=== PATIENT | female | born 1990 | race African-American/Black ===

== ENCOUNTER 2021-01-29 15:48 | Outpatient (CLI) | payer OTHER, SELFPAY | END 2021-01-29 15:49 | disposition home or self-care (01) | PROVIDERS: Visit Provider Student in an Organized Health Care Education/Training Program | DX: Z34.90 Encounter for supervision of normal pregnancy, unspecified, unspecified trimester (principal) | CPT/HCPCS: 36415; 86850; 86900; 86901 ==

== ENCOUNTER 2021-02-26 15:34 | Outpatient (CLI) | payer OTHER, SELFPAY ==
[2021-02-26 16:16] LABS: Basophils Percent Auto 0.6 % (0.2-1.2); Eosinophils Absolute Auto 0.2 K/mm3 (0-0.3); Eosinophils Percent Auto 2.5 % (0-4.4); Hematocrit 37.8 % (37.0-47.0); Hemoglobin 13.1 g/dL (12.0-15.0); Immature Granulocyte Absolute 0.02 K/mm3 (0.00-0.031); Immature Granulocyte Percent A 0.3 % (0-0.5); Lymphocytes Absolute Auto 1.87 K/mm3 (0.9-3.2); Lymphocytes Percent Auto 25.9 % (18.3-44.2); Mean Corpuscular HGB Conc 34.7 g/dl (32-36); Mean Corpuscular Hemoglobin 32.8 pg (26-34); Mean Corpuscular Volume 94.5 fl (80-100); Mean Platelet Volume 8.7 fl (7.4-10.4); Monocytes Absolute Auto 0.5 K/mm3 (0.1-0.6); Monocytes Percent Auto 6.9 % (2.6-8.5); Neutrophils Absolute Auto 4.6 K/mm3 (1.3-6.7); Neutrophils Percent Auto 63.8 % (45.5-73.1); Platelet Count Result 280 k/mm3 (150-375); Red Cell Distribution Width 12.3 % (11.5-14.5); White Blood Count 7.2 K/mm3 (4.5-10.0)
[2021-02-26 16:20] LABS: Add Urine Microscopic? YES; Appearance Urine Clear (Clear); Bilirubin Urine Negative (Negative); Blood Urine Negative (Negative); Color Urine Yellow (Yellow); Glucose Urine UA Negative (Negative); Ketones Urine Negative (Negative); Leukocyte Esterase Ur Trace LEU/UL (NEGATIVE); Mucus Urine Rare /lpf; Nitrate Urine Negative (Negative); Protein Urine Negative (Negative); RBC Urine 0-2 /hpf (0-2); Squamous Epithelial Cell Urine Occasional /hpf (Few); Urobilinogen Urine Negative mg/dL (<2.0); WBC Urine 0-3 /hpf (0-3)
[2021-02-26 17:13] LABS: Thyroid Stimulating Hormone 0.099 uIU/mL (0.465-4.680)
[2021-02-26 17:17] LABS: Vitamin D 25 Hydroxy 41.5 ng/mL
[2021-02-26 17:23] LABS: HIV 1/2 Ab P24 Ag Result Negative (Negative)
[2021-02-26 17:34] LABS: Hepatitis B Surface Antigen Negative (Negative)
[2021-02-26 17:48] LABS: Hepatitis C Virus Antibody Negative (Negative)
[2021-02-26 18:01] LABS: Rubella IgG Antibody > 120.0 IU/ML
[2021-03-01 07:57] LABS: Rapid Plasma Reagin Non-Reactive (NonReactive)
== END 2021-02-26 15:35 | disposition home or self-care (01) ==
PROVIDERS: Visit Provider Student in an Organized Health Care Education/Training Program
DX: Z34.90 Encounter for supervision of normal pregnancy, unspecified, unspecified trimester (principal); Z3A.00 Weeks of gestation of pregnancy not specified
CPT/HCPCS: 36415; 81001; 82306; 84443; 85025; 86592; 86703; 86762; 86787; 86803; 87077; 87086; 87088; 87186; 87340; G0432

== ENCOUNTER 2021-05-25 11:06 | Outpatient (CLI) | payer OTHER, SELFPAY ==
[2021-05-25 13:15] LABS: Basophils Percent Auto 0.3 % (0.2-1.2); Eosinophils Absolute Auto 0.1 K/mm3 (0-0.3); Eosinophils Percent Auto 1.5 % (0-4.4); Hematocrit 33.2 % (37.0-47.0); Hemoglobin 11.5 g/dL (12.0-15.0); Immature Granulocyte Absolute 0.02 K/mm3 (0.00-0.031); Immature Granulocyte Percent A 0.3 % (0-0.5); Lymphocytes Absolute Auto 1.55 K/mm3 (0.9-3.2); Lymphocytes Percent Auto 23.6 % (18.3-44.2); Mean Corpuscular HGB Conc 34.6 g/dl (32-36); Mean Corpuscular Hemoglobin 34.3 pg (26-34); Mean Corpuscular Volume 99.1 fl (80-100); Mean Platelet Volume 9.4 fl (7.4-10.4); Monocytes Absolute Auto 0.5 K/mm3 (0.1-0.6); Monocytes Percent Auto 7.3 % (2.6-8.5); Neutrophils Absolute Auto 4.4 K/mm3 (1.3-6.7); Platelet Count Result 218 k/mm3 (150-375); Red Blood Count 3.35 M/mm3 (4.2-5.4); Red Cell Distribution Width 13.4 % (11.5-14.5); White Blood Count 6.6 K/mm3 (4.5-10.0)
[2021-05-25 14:00] LABS: Glucose 1 Hour PP 50gm Dose 92 mg/dL
== END 2021-05-25 11:07 | disposition home or self-care (01) ==
LOC: ANHLAB 11:08
PROVIDERS: PCP Internal Medicine; Visit Provider Student in an Organized Health Care Education/Training Program
DX: Z34.90 Encounter for supervision of normal pregnancy, unspecified, unspecified trimester (principal)
CPT/HCPCS: 36415; 82947; 85025

== ENCOUNTER 2021-07-08 14:57 | Outpatient (CLI) | payer OTHER, SELFPAY ==
[2021-07-08 15:55] LABS: Basophils Percent Auto 0.4 % (0.2-1.2); Eosinophils Absolute Auto 0.2 K/mm3 (0-0.3); Eosinophils Percent Auto 2.1 % (0-4.4); Hematocrit 32.9 % (37.0-47.0); Hemoglobin 11.6 g/dL (12.0-15.0); Immature Granulocyte Absolute 0.05 K/mm3 (0.00-0.031); Immature Granulocyte Percent A 0.7 % (0-0.5); Lymphocytes Absolute Auto 1.69 K/mm3 (0.9-3.2); Lymphocytes Percent Auto 23.8 % (18.3-44.2); Mean Corpuscular HGB Conc 35.3 g/dl (32-36); Mean Corpuscular Hemoglobin 34.2 pg (26-34); Mean Corpuscular Volume 97.1 fl (80-100); Mean Platelet Volume 9.8 fl (7.4-10.4); Monocytes Absolute Auto 0.5 K/mm3 (0.1-0.6); Monocytes Percent Auto 7.5 % (2.6-8.5); Neutrophils Absolute Auto 4.6 K/mm3 (1.3-6.7); Neutrophils Percent Auto 65.5 % (45.5-73.1); Platelet Count Result 191 k/mm3 (150-375); Red Blood Count 3.39 M/mm3 (4.2-5.4); Red Cell Distribution Width 12.4 % (11.5-14.5); White Blood Count 7.1 K/mm3 (4.5-10.0)
[2021-07-08 18:12] LABS: HIV 1/2 Ab P24 Ag Result Negative (Negative)
[2021-07-09 06:26] LABS: Rapid Plasma Reagin Non-Reactive (NonReactive)
== END 2021-07-08 14:58 | disposition home or self-care (01) ==
LOC: ANHLAB 14:59
PROVIDERS: PCP Internal Medicine; Visit Provider Student in an Organized Health Care Education/Training Program
DX: Z34.90 Encounter for supervision of normal pregnancy, unspecified, unspecified trimester (principal); Z3A.00 Weeks of gestation of pregnancy not specified
CPT/HCPCS: 36415; 85025; 86592; 86703; G0432

== ENCOUNTER 2021-07-20 09:02 | Outpatient (CLI) | payer OTHER, SELFPAY ==
[2021-07-20 09:42] LABS: Basophils Percent Auto 0.4 % (0.2-1.2); Eosinophils Absolute Auto 0.2 K/mm3 (0-0.3); Eosinophils Percent Auto 2.1 % (0-4.4); Hematocrit 29.9 % (37.0-47.0); Hemoglobin 10.6 g/dL (12.0-15.0); Immature Granulocyte Absolute 0.05 K/mm3 (0.00-0.031); Immature Granulocyte Percent A 0.7 % (0-0.5); Lymphocytes Absolute Auto 2.06 K/mm3 (0.9-3.2); Lymphocytes Percent Auto 26.8 % (18.3-44.2); Mean Corpuscular HGB Conc 35.5 g/dl (32-36); Mean Corpuscular Hemoglobin 33.9 pg (26-34); Mean Corpuscular Volume 95.5 fl (80-100); Monocytes Absolute Auto 0.6 K/mm3 (0.1-0.6); Monocytes Percent Auto 8.2 % (2.6-8.5); Neutrophils Absolute Auto 4.8 K/mm3 (1.3-6.7); Neutrophils Percent Auto 61.8 % (45.5-73.1); Platelet Count Result 163 k/mm3 (150-375); Red Blood Count 3.13 M/mm3 (4.2-5.4); Red Cell Distribution Width 12.3 % (11.5-14.5); White Blood Count 7.7 K/mm3 (4.5-10.0)
[2021-07-20 10:35] LABS: HIV 1/2 Ab P24 Ag Result Negative (Negative)
[2021-07-21 10:37] LABS: Rapid Plasma Reagin Non-Reactive (NonReactive)
== END 2021-07-20 09:03 | disposition home or self-care (01) ==
LOC: ANHLAB 09:04
PROVIDERS: PCP Internal Medicine; Visit Provider Student in an Organized Health Care Education/Training Program
DX: Z34.03 Encounter for supervision of normal first pregnancy, third trimester (principal); Z3A.00 Weeks of gestation of pregnancy not specified
CPT/HCPCS: 36415; 85025; 86592; 86703; G0432

== ENCOUNTER 2021-09-02 17:05 | Inpatient (IN) | payer OTHER, SELFPAY ==
[2021-09-02] VITALS (19 sets, daily range): BP systolic 83–124; BP diastolic 29–75; PULSE 73–88
[2021-09-02] MEDS: AMPICILLIN 2 GM/NS 100 ML 2 GM/100 ML BAG IVPB (18:10)
[2021-09-02] MEDS: LACTATED RINGERS 1,000 ML 125 ML IV CONT (18:10)
[2021-09-02 18:12] LABS: Basophils Percent Auto 0.3 % (0.2-1.2); Eosinophils Absolute Auto 0.1 K/mm3 (0-0.3); Hematocrit 33.1 % (37.0-47.0); Hemoglobin 11.7 g/dL (12.0-15.0); Immature Granulocyte Absolute 0.05 K/mm3 (0.00-0.031); Immature Granulocyte Percent A 0.7 % (0-0.5); Lymphocytes Absolute Auto 1.76 K/mm3 (0.9-3.2); Mean Corpuscular HGB Conc 35.3 g/dl (32-36); Mean Corpuscular Hemoglobin 34.7 pg (26-34); Mean Corpuscular Volume 98.2 fl (80-100); Mean Platelet Volume 9.6 fl (7.4-10.4); Monocytes Absolute Auto 0.6 K/mm3 (0.1-0.6); Monocytes Percent Auto 8.1 % (2.6-8.5); Neutrophils Absolute Auto 5.1 K/mm3 (1.3-6.7); Neutrophils Percent Auto 66.9 % (45.5-73.1); Platelet Count Result 170 k/mm3 (150-375); Red Blood Count 3.37 M/mm3 (4.2-5.4); White Blood Count 7.7 K/mm3 (4.5-10.0)
--- NOTE | 2021-09-02 19:23 | LDADM ---
This patient, Cassandra Ramirez, was admitted to Labor/Delivery/Recovery 103 on 09/02/21 at 17:05. Plans for labor, pain management and were discussed with patient. Patient/family oriented to hospital policies and general routines including ID bracelet, bed and alarms, visiting hours, pain management, procedures, bathroom and other care routines, personal items, smoking policy, room service/diet and guest tray routines, infant security routines, and visiting hours. Patient/Family are encouraged to report perceived risks to care and to ask questions if they do not understand what they are told or what they should do. See OBIX for further documentation.
[2021-09-02] MEDS: AMPICILLIN 1 GM/NS 50 ML 1 GM/50 ML BAG IVPB (22:27)
[2021-09-02] MEDS: OXYTOCIN 30 UNITS/NS 500 ML 30 UNITS/500 ML BAG IV CONT (23:05)
[2021-09-03] VITALS (189 sets, daily range): BP systolic 81–198; BP diastolic 40–182; PULSE 59–120; RESP 16–22; TEMP 36.3–37.2; O2SAT 86–100; BMI 31.4
--- NOTE | 2021-09-03 00:25 | WPDANESEPP ---
Anes - Eval Pre Procedure Procedure: labor epidural Date/Time: 09/03/21 00:25 Surgeon: vani Pre Op Diagnosis: spontaneous rupture of membranes Patient Data Age: 30 Gender: F Height: Weight: Last Vital Signs Pulse 88 09/02/21 23:55 BP 114/66 09/02/21 23:55 Allergies Allergy/AdvReac Type Severity Reaction Status Date / Time No Known Allergies Allergy Verified 08/31/21 11:00 Home Medications Medication Instructions Recorded Confirmed Type prenat.vits,anna,[id number]-azor-[id number] 1 tablet PO DAILY 01/20/21 09/02/21 History ferrous sulfate 325 mg (65 mg 325 mg PO DAILY #90 tablet 07/20/21 09/02/21 Rx iron) tablet Laboratory Tests 09/02/21 09/02/21 09/02/21 17:54 17:54 17:54 WBC 7.7 K/mm3 K/mm3 (4.5-10.0) RBC 3.37 M/mm3 L M/mm3 (4.2-5.4) Hgb 11.7 g/dL L g/dL (12.0-15.0) Hct 33.1 % L % (37.0-47.0) MCV 98.2 fl fl (80-100) MCH 34.7 pg H pg (26-34) MCHC 35.3 g/dl g/dl (32-36) RDW 13.0 % % (11.5-14.5) Plt Count 170 k/mm3 k/mm3 (150-375) MPV 9.6 fl fl (7.4-10.4) Immature Gran % (Auto) 0.7 % H % (0-0.5) Neut % (Auto) 66.9 % % (45.5-73.1) Lymph % (Auto) 23.0 % % (18.3-44.2) [place] % (Auto) 8.1 % % (2.6-8.5) Eos % (Auto) 1.0 % % (0-4.4) Baso % (Auto) 0.3 % % (0.2-1.2) Lymph # (Auto) 1.76 K/mm3 K/mm3 (0.9-3.2) [place] # (Auto) 0.6 K/mm3 K/mm3 (0.1-0.6) Eos # (Auto) 0.1 K/mm3 K/mm3 (0-0.3) Baso # (Auto) 0.0 K/mm3 K/mm3 (0.0-0.1) Abs Immat Gran (auto) 0.05 K/mm3 H K/mm3 (0.00-0.031) Absolute Neuts (auto) 5.1 K/mm3 K/mm3 (1.3-6.7) Absolute Nucleated RBC 0.0 K/mm3 K/mm3 (0.0-0.012) Nucleated RBC % 0.0 % % (0.0-0.2) RPR Pending Blood Type O Positive Antibody Screen Negative Patient hx anesthesia problems: none Family hx anesthesia problems: none Results Review: All pre-operative results and documents have been reviewed as part of the pre-operative evaluation. FORMERLY [facility], [facility] Past Medical History Medical History History of chlamydia History of gonorrhea Surgical History Surgical History History of plastic surgery [employer] Butt Lift Family History Family History Other No pertinent family history Social History Social History Smoking status: Current every day smoker Second hand tobacco smoke exposure: No Alcohol intake: former Substance use: never Spiritual care concerns: No Exam Day of Procedure 09/03/21 00:25
[2021-09-03] MEDS: LACTATED RINGERS 1,000 ML 125 ML IV CONT ×2 (01:25→08:09)
[2021-09-03] MEDS: AMPICILLIN 1 GM/NS 50 ML 1 GM/50 ML BAG IVPB ×3 (02:20→11:14)
[2021-09-03 06:28] LABS: Rapid Plasma Reagin Non-Reactive (NonReactive)
[2021-09-03] MEDS: OXYTOCIN 30 UNITS/NS 500 ML 30 UNITS/500 ML BAG 125 UNITS IV CONT (12:15)
--- NOTE | 2021-09-03 12:40 | PM.IMHP ---
H&P: HPI History of Present Illness Date/Time: 09/03/21 12:40 The patient is a 30-year-old LMP 12/03/2020 who presented to Labor and delivery on the evening of 09/02/2021 at 39 weeks gestation. SUJATA 09/09/2021. Patient is dated by LMP consistent with ultrasound on 01/29/2021 at 8 weeks gestation. Patient presented to labor and delivery with complaints of leakage of fluid. Patient reported a large gush of clear fluid at approximately 3:30 p.m. She reports subsequent onset of contractions. Upon arrival to labor and delivery a few hours later, patient was noted to be grossly ruptured in early labor. Patient denied any vaginal bleeding and reported good movement. Chief Complaint: Early labor Spontaneous rupture of membranes Review of Systems Review of Systems: All systems reviewed & are unremarkable except as noted in HPI and below Constitutional: Constitutional: Reports as per HPI, Reports no additional constitutional complaints, Denies chills, Denies fever(s), Denies headache(s) and Denies night sweats Eyes: Eyes: Reports as per HPI and Reports no additional eye complaints ENT: Reports system reviewed and no additional complaints, except as documented, Reports as per HPI, Reports Normal hearing present and Denies headache(s) Cardiovascular: Cardiovascular: Reports as per HPI, Reports no additional cardiovascular complaints, Denies chest pain and Denies dyspnea Respiratory: Respiratory: Reports as per HPI, Reports no additional respiratory complaints, Denies cough and Denies dyspnea Gastrointestinal: Gastrointestinal: Reports as per HPI, Reports no additional gastrointestinal complaints, Denies abdominal pain, Denies change in bowel habits, Denies change in stool character, Denies nausea and Denies vomiting Genitourinary: Genitourinary: Reports no additional female genitourinary complaints, Reports as per HPI, Denies abnormal vaginal bleeding, Denies genital lesions, Denies hot flashes, Denies dyspareunia, Denies pelvic pain, Denies sexual dysfunction, Denies urinary incontinence, Denies vaginal discharge, Denies vaginal dryness and Denies vaginal odor Musculoskeletal: Musculoskeletal: Reports no additional musculoskeletal complaints and Reports as per HPI Integumentary/Breasts: Skin/Breast: Reports system reviewed and no additional complaints, except as docu, Reports as per HPI, Denies breast pain and Denies nipple discharge Neurologic: Reports system reviewed and no additional complaints, except as documented, Reports as per HPI, Reports Normal hearing present and Denies headache(s) Psychiatric: Psychiatric: Reports no additional psychiatric complaints, Reports as per HPI, Denies anxiety and Denies depression Endocrine: Endocrine: Reports no additional endocrine complaints and Reports as per HPI Hematologic/Lymphatic: Hematologic/Lymphatic: Reports no additional hematologic/lymphatic complaints and Reports as per HPI Allergic/Immunologic: Allergic/Immunologic: Reports no additional allergic/immunologic complaints and Reports as per HPI PMFSH Past Medical History Medical History History of chlamydia History of gonorrhea Surgical History Surgical History History of plastic surgery [employer] Butt Lift Family History Family History Other No pertinent family history Social History Social History Smoking status: Current every day smoker Second hand tobacco smoke exposure: No Alcohol intake: former Substance use: never Spiritual care concerns: No Meds Home Medications and Allergies Home Medications Medication Instructions Recorded Confirmed Type prenat.vits,anna,[id number] 1 tablet PO DAILY 01/20/21 09/02/21 History ferrous sulfate 325 mg (65 mg 325 mg PO DAILY #90 tablet 07/20/21
--- NOTE | 2021-09-03 12:40 | PM.OBPRVD ---
OB - Delivery Note Procedure Delivery date: 09/03/21 Procedure: Patient is now a 30-year-old who presented to labor and delivery on the evening of 09/02/2021 at 39 weeks gestation with complaints of leakage of fluid and contractions. She reported large gush of fluid at approximately 3:30 p.m. Patient was noted to be grossly ruptured at time of presentation and in early labor. Patient was admitted to labor and delivery. Patient was GBS positive and started on antibiotics for GBS prophylaxis. She was observed for several hours, however, did not progress into active labor on her own. Pitocin was started for labor augmentation. Patient became uncomfortable and requested an epidural for pain management which was placed without difficulty. Pitocin was continuously titrated overnight and throughout the next morning. Patient made progressive cervical change and was noted to be fully dilated at 9:28 a.m. Patient was encouraged to push and found to be pushing well. She was prepped and draped for delivery. At 11:45 a.m., patient delivered head atraumatically and without difficulty in FERNANDO presentation. Occiput restituted to maternal left side. With subsequent push, the 's neck, shoulders, and rest of body delivered without difficulty. A body cord was visualized wrapped around 's left shoulder and waist. Cord was reduced. was extremely floppy and placed on maternal abdomen where care was assumed by awaiting nursing staff. The cord was quickly clamped and cut and infant was taken to infant warmer by nurse. It was noted the infant had passed terminal meconium. A segment of cord was collected for cord gases. Cord blood was collected. The placenta was delivered spontaneously and intact. Uterine fundus was noted to be firm with massage. A red rubber catheter was used to drain the bladder of approximately 20 cc of concentrated urine. On inspection, a superficial first-degree perineal laceration was noted. This laceration was repaired with 3-0 Vicryl in the usual fashion. Excellent hemostasis was noted. The patient was cleansed and dried. Estimated blood loss for entire delivery was 200 cc. The was a live-born male , Apgars 5 and 8, weighing 8 lbs. Both mother and baby doing well at end of delivery. events: Labor Augmentation Intrapartal events: None Delivery augmentation: pitocin Delivery monitor: external FHT and external uterine Route of delivery: Laceration Description: Perineal - 1st Degree Delivery repair: vicryl (3-0 vicryl) Specimen: No Quantitative Blood Loss (ml): 200 Anesthesia type: Epidural Disposition: floor Complications: No immediate complications Baby Date of : 09/03/21 Time of : 11:45 Weeks of gestation at delivery: 39 (39.1) Infant gender: Male Weight (pounds): 8 Weight (ounces): 0 presentation: vertex position: Left Occiput Anterior Placenta delivery description: Spontaneous cord vessel description: 3 Vessels and Around Body x1 score one minute: 5 score five minutes: 8
[2021-09-03] MEDS: KETOROLAC 30 MG/ML VIAL (*BKC) IV PUSH (13:47)
[2021-09-03] MEDS: ONDANSETRON INJ 4 MG/2 ML VIAL IV PUSH (13:47)
[2021-09-03] MEDS: IBUPROFEN 600 MG TABLET PO (23:44)
[2021-09-04] VITALS: BP 109/64; PULSE 70; RESP 18; TEMP 36.3; O2SAT 100
[2021-09-04 04:31] VITALS: BP 94/47; PULSE 57; RESP 18; TEMP 36.3; O2SAT 100
[2021-09-04 05:51] LABS: Hematocrit 28.5 % (37.0-47.0)
--- NOTE | 2021-09-04 08:00 | PC.NURSE ---
PT introductions made and plan of care discussed per post , pain management, breast feeding, daily care activities. PT sole recipient of such instructions this shift. PT received instructions per one to one discussion, mom baby care guide and demonstrations. PT verbalized understanding of such care and no barriers to learning identified at this time.
--- NOTE | 2021-09-04 10:28 | WPDANLDPN2 ---
Anes-Prog Note L&D Date/Time: 09/04/21 10:28 Comfortable throughout: labor and delivery Neuraxial method: epidural Epidural/Spinal procedure site: clean & non-tender Neuro status: Neuro function grossly intact. Cardiovascular status: normal Respiratory status: normal Airway patency: baseline Mental status: baseline Post-Op hydration status: normal Vital Signs: Last Vital Signs Temp 36.3 C L 09/04/21 04:31 Pulse 57 L 09/04/21 04:31 Resp 18 09/04/21 04:31 BP 94/47 L 09/04/21 04:31 Pulse Ox 100 09/04/21 04:31 Pain score (VAS): 08/30 Post-procedural complaints: none Patient feedback: Patient satisfied with anesthetic care.
[2021-09-04 11:00] VITALS: BP 100/62; PULSE 60; RESP 18; TEMP 36.6; O2SAT 100; O2SAT 99
[2021-09-04] MEDS: MULTIVIT/MIN/PREN/FOL AC/IRON TABLET 1 TAB PO (11:17)
[2021-09-04] MEDS: IBUPROFEN 600 MG TABLET PO ×2 (11:17→17:23)
[2021-09-04] MEDS: DOCUSATE SODIUM 100 MG CAPSULE PO ×2 (11:17→17:23)
[2021-09-04] MEDS: LANOLIN (LANSINOH) 7.5 GM CREAM 1 APPLIC TOPICAL (11:18)
--- NOTE | 2021-09-04 12:55 | PM.OBPNVD ---
OB - PN: Subj Subjective Date/time seen: 09/04/21 12:55 Patient doing well. Pain well controlled with medication. Minimal lochia. Baby well. OB - PN: Obj Data Labs CBC & Chem 7: 09/04/21 03:22 Labs: Laboratory Results - last 24 hr 09/04/21 03:22 Hgb 10.0 L Hct 28.5 L OB - PN A/P Assessment and Plan (1) Normal spontaneous vaginal delivery: Code(s): O80 - Encounter for full-term uncomplicated delivery Status: Acute Assessment and Plan: PPD#1 doing well continue routine care anticipate dc home tomorrow Time Spent With Patient Time: Total time spent is greater than 50% in coordination of care (as documented) at patient's floor/unit and/or counseling patient: Exam Const: General: cooperative, healthy appearing, comfortable and no acute distress GI: Inspection: non-distended GI Palp: Yes Soft to palpation and No Tenderness to palpation present (GI) Other: fundus firm below umbilicus Extrem: Right lower extremity: no edema Left lower extremity: no edema Other: no calf tenderness
[2021-09-04 19:00] VITALS: BP 105/64; PULSE 65; RESP 16; TEMP 37; O2SAT 100
[2021-09-05] MEDS: TETANUS,DIPHTHERIA,AC PERTUSSIS ADULT (0.5 ML) BOOSTRIX IM (05:07)
[2021-09-05] MEDS: IBUPROFEN 600 MG TABLET PO (05:07)
--- NOTE | 2021-09-05 08:00 | PC.NURSE ---
PT introductions made and plan of care discussed per post , pain management, breast feeding, daily care activities and pending discharge. PT sole recipient of such instructions this shift. PT received instructions per one to one discussion, mom baby care guide and demonstrations. PT verbalized understanding of such care and no barriers to learning identified at this time.
--- NOTE | 2021-09-05 08:28 | PM.OBPNVD ---
OB - PN: Subj Subjective Date/time seen: 09/05/21 08:28 Patient doing well. Pain well controlled with medication. Minimal lochia. Ambulating well. Voiding without difficulty. Baby well. OB - PN: Obj Data Labs CBC & Chem 7: 09/04/21 03:22 OB - PN A/P Assessment and Plan (1) Normal spontaneous vaginal delivery: Code(s): O80 - Encounter for full-term uncomplicated delivery Status: Acute Assessment and Plan: PPD#2 doing well continue routine care dc home in stable condition emergency precautions reviewed f/u in office in 4-6 weeks for visit Time Spent With Patient Time: Total time spent is greater than 50% in coordination of care (as documented) at patient's floor/unit and/or counseling patient: Exam Const: General: cooperative, healthy appearing, comfortable and no acute distress GI: Inspection: non-distended GI Palp: Yes Soft to palpation and No Tenderness to palpation present (GI) Other: fundus firm below umbilicus Neuro: General: patient oriented x3 Extrem: Right lower extremity: no edema Left lower extremity: no edema Other: no calf tenderness Psych: Appearance: grossly normal Mental Status: mental status grossly normal
--- NOTE | 2021-09-05 08:38 | PM.OBDSVD ---
DS: Admitting Diagnosis Discharge Date 09/05/21 Admitting Diagnosis IUP at 39w PROM OB - DS: Summary OB Procedures : None OB Procedures Intrapartum: Spontaneous Vag Delivery OB Procedures: : None Time Spent with Patient Time attestation: Total time spent providing and/or coordinating discharge services: Discharge Plan Discharge Attending physician on discharge: Leisa Regalado Discharging Clinician: Leisa Regalado Anticipated Discharge Date/Time: 09/05/21 08:38 Patient Disposition: Home, Self-Care Activity: pelvic rest Diet: regular Discharge Instructions: Call office ([phone]) to schedule a visit in 4-6 weeks. You may take Ibuprofen 600mg every 6 hours as needed for pain. Pain medication may make you constipated. It may be helpful to take an tlbm-yzo-letztol stool softener, such as Colace and/or Senokot, along with the pain medication to help lessen constipation. Call office or go to ED for pain not controlled with medication, headache, chest pain, shortness of breath, fever, chills, persistent nausea or vomiting, severe abdominal pain, heavy vaginal bleeding >2 pads/hour, foul vaginal discharge or odor, or problems with your breasts. Education: Mom and Baby Guide Given to: Mother Follow-Up: Call your delivering provider's office for an appointment to be seen in: 4 Weeks Mom and baby should come to the [facility] for the follow-up appointment. Appointment Date/Time: September 06, 2021 at 10:00 am What to expect at your follow-up visit: Blood Pressure Check Call [phone] if you are unable to keep your appointment time. BREAST CARE: * Wear a snug supportive bra. * For engorgement discomfort: Breast Feeding: * Apply warm moist washcloths * Express milk as needed to relieve engorgement * Wear loose clothing Bottle Feeding: * May apply ice packs * For sore nipples: * Identify correct latch-on * Apply warm moist washcloths before and after nursing * Air dry nipples after nursing * May apply Lansinoh cream to nipples PERINEAL CARE: * Until bleeding stops, use your cade bottle after urinating * Change your pad frequently throughout the day * You may take sitz baths several times a day (fill your bathtub with warm water and soak for 20 minutes.) Do NOT bathe in the water * No tub baths until seen by your physician - You may shower ACTIVITY: * Rest as much as possible. * Do not exercise or lift anything heavier than your baby (such as laundry or other children.) * Avoid stairs or driving as much as possible. * Do not put anything into the vagina. No douching, tampons, or sexual activity until seen by physician. NOTIFY PHYSICIAN IF YOU HAVE ANY QUESTIONS OR IF ANY OF THE FOLLOWING SYMPTOMS OCCUR: * If your perineum becomes red, swollen, or more painful than what you have experienced in the hospital. * If your vaginal bleeding becomes foul smelling. * If your vaginal bleeding becomes more heavy than a period or if your bleeding changes from pink to bright red. However, you may pass an occasional walnut-sized clot once or twice for the first week . * If you experience a sharp, shooting pain in you calves. * If you discover a hard, reddened area on your breast or if you experience flu-like symptoms. *If you have a fever of 100.4 or greater DIET: * Eat regular, well-balanced meals. * Drink plenty of fluids daily. If , drink to thirst. Patient Instructions: Antibiotic Form, How to Stop Smoking (DC) Stand Alone Forms: General Discharge Information Follow-up/Referrals: Leisa Regalado MD [Physician] - Discharge Medications: Continued prenat.vits,anna,[id number] Tablet 1 tablet PO DAILY RF: 0 Discontinued ferrous sulfate 325 mg (65 mg iron) tablet 325 mg PO DAILY Qty: 90 RF: 0 Date of admission
[2021-09-05 10:30] VITALS: BP 106/62; PULSE 60; RESP 18; TEMP 36.9; O2SAT 100
[2021-09-05] MEDS: DOCUSATE SODIUM 100 MG CAPSULE PO (10:35)
[2021-09-05] MEDS: BENZOCAINE 20% AER SPR (*SP) 56 GM CAN 1 SPRAY TOPICAL (10:35)
[2021-09-05] MEDS: WITCH HAZEL 40 PADS 1 PAD TOPICAL (10:35)
[2021-09-05] MEDS: ACETAMINOPHEN 325 MG TABLET 650 MG PO (10:35)
[2021-09-05] MEDS: MULTIVIT/MIN/PREN/FOL AC/IRON TABLET 1 TAB PO (10:35)
--- NOTE | 2021-09-05 11:15 | PC.NURSE ---
PT received discharge instructions per protocol and verbalized understanding of such care. Patient was given the opportunity to view the discharge video Mother & Baby Care, The First Two Weeks and to ask questions. Patient declined viewing the video and has been given the mother/baby guide for home reference. PT did download the video to her phone to watch at a later date.
--- NOTE | 2021-09-05 12:00 | PC.NURSE ---
PT discharged to home ambulatory accompanied by significant other and and taken to waiting car. Follow up appts confirmed
== END 2021-09-05 12:00 | disposition home or self-care (01) | DRG 560 ==
LOC: ANHLDR 17:36 → ANHOB2 09-03 14:34
PROVIDERS: Admitting Provider Student in an Organized Health Care Education/Training Program; PCP Internal Medicine; Visit Provider Student in an Organized Health Care Education/Training Program
DX: O42.02 Full-term premature rupture of membranes, onset of labor within 24 hours of rupture (principal); O99.334 Smoking (tobacco) complicating childbirth; F17.200 Nicotine dependence, unspecified, uncomplicated; O99.824 Streptococcus B carrier state complicating childbirth; O69.2XX0 Labor and delivery complicated by other cord entanglement, with compression, not applicable or unspecified; O70.0 First degree perineal laceration during delivery; O76 Abnormality in fetal heart rate and rhythm complicating labor and delivery; Z3A.39 39 weeks gestation of pregnancy; Z37.0 Single live birth
CPT/HCPCS: 36415; 84112; 85014; 85018; 85025; 86592; 86850; 86900; 86901; 90715; A9270; J0290; J1885; J2405; J2590; J2795; J7120